=== PATIENT | female | born 1970 | race Caucasian/White ===

== ENCOUNTER 2017-08-28 07:23 | Emergency (ER) | payer MEDICAID, OTHER | END 2017-08-28 09:07 | disposition home or self-care (01) | LOC: PHED 07:23 | DX: L98.9 Disorder of the skin and subcutaneous tissue, unspecified (principal); F19.10 Other psychoactive substance abuse, uncomplicated; F17.210 Nicotine dependence, cigarettes, uncomplicated; K58.9 Irritable bowel syndrome, unspecified; F41.9 Anxiety disorder, unspecified | CPT/HCPCS: 87040; 99283 ==